=== PATIENT | female | born 1990 ===

== ENCOUNTER 2021-04-15 14:18 | Outpatient (CLI) | payer OTHER | END 2021-04-15 15:55 | disposition home or self-care (01) | LOC: PRENATAL 14:18 | PROVIDERS: ATTEND Obstetrics & Gynecology Maternal & Fetal Medicine | DX: O35.0XX0 Maternal care for (suspected) central nervous system malformation in fetus, not applicable or unspecified (principal); O26.20 Pregnancy care for patient with recurrent pregnancy loss, unspecified trimester; O35.3XX0 Maternal care for (suspected) damage to fetus from viral disease in mother, not applicable or unspecified; O99.891 Other specified diseases and conditions complicating pregnancy ==

== ENCOUNTER 2021-07-07 14:46 | Outpatient (CLI) | payer OTHER | END 2021-07-07 15:45 | disposition home or self-care (01) | LOC: PRENATAL 14:46 | PROVIDERS: ATTEND Obstetrics & Gynecology Maternal & Fetal Medicine | DX: O26.849 Uterine size-date discrepancy, unspecified trimester (principal); O36.8199 Decreased fetal movements, unspecified trimester, other fetus; Z88.0 Allergy status to penicillin; Z3A.33 33 weeks gestation of pregnancy ==